=== PATIENT | female | born 1960 | race Caucasian/White ===

== ENCOUNTER 2024-06-17 21:01 | Emergency (ER) | payer MEDICARE, OTHER ==
[~2024-06-17] VITALS: Ht 162.6 cm; Wt 53.5 kg
[2024-06-17 21:43] VITALS: BP 127/70; O2SAT 97
== END 2024-06-17 21:43 | disposition home or self-care (01) ==
LOC: ER 21:01
DX: S93.491A Sprain of other ligament of right ankle, initial encounter (principal); M81.0 Age-related osteoporosis without current pathological fracture; Z88.7 Allergy status to serum and vaccine; X50.1XXA Overexertion from prolonged static or awkward postures, initial encounter; Y93.89 Activity, other specified; Y92.89 Other specified places as the place of occurrence of the external cause; Y99.8 Other external cause status
CPT/HCPCS: 73610; A4606; A4663